=== PATIENT | female | born 1995 | race African-American/Black ===

== ENCOUNTER 2018-02-08 13:17 | Emergency (ER) | payer OTHER ==
[2018-02-08 13:26] VITALS: BP 119/76; PULSE 79; TEMP 99.5; BMI 20.7
--- NOTE | 2018-02-08 14:21 | PDOC ---
History of Present Illness - General Chief Complaint: Sore Throat Stated Complaint: SORE THROAT Time Seen by Provider: 02/08/18 14:15 - History of Present Illness Initial Comments: 02/08/18 14:19 22-year-old female without comorbidities presents for evaluation of sore throat 2 days without associated symptoms Past History - Past Medical History Allergies/Adverse Reactions: Allergies Allergy/AdvReac Type Severity Reaction Status Date / Time No Known Allergies Allergy Verified 12/16/15 16:06 Home Medications: Ambulatory Orders NK [No Known Home Medication] 02/08/18 Asthma: Yes COPD: No - Immunization History Immunization Up to Date: Yes - Suicide/Smoking/Psychosocial Hx Smoking Status: No Smoking History: Never smoked Have you smoked in the past 12 months: No Number of Cigarettes Smoked Daily: 0 Hx Alcohol Use: No Drug/Substance Use Hx: No Substance Use Type: None Review of Systems - Review of Systems HEENTM: Yes: Throat Pain *Physical Exam - Vital Signs Last Vital Signs Temp Pulse Resp BP Pulse Ox 99.5 F 79 16 119/76 100 02/08/18 13:24 02/08/18 13:24 02/08/18 13:24 02/08/18 13:24 02/08/18 13:24 - Physical Exam Comments: HEAD: NC/AT EYES: Conjuntiva clear Ears: Canals and TM's normal NOSE: No d/c THROAT: Moist mucous membrances, oral pharanx clear, uvula midline NECK: Supple without adenopathy CARDIAC: S1 S2 LUNGS: CTA Full and Equal breath sounds ABDOMEN: Soft NT ND MS: Full ROM in all joints without edema NEUROLOGIC: No gross sensory or motor deficits, NVID SKIN: Normal color and temperature no lesions or rashes 02/08/18 14:20 Medical Decision Making - Medical Decision Making Rapid strep pending 02/08/18 14:20 *DC/Admit/Observation/Transfer Diagnosis at time of Disposition: URI (upper respiratory infection) - Discharge Dispostion Disposition: HOME Condition at time of disposition: Stable Decision to Admit order: No - Referrals Referrals: Gianni Langston MD [Primary Care Provider] - - Patient Instructions Printed Discharge Instructions: DI for Viral Upper Respiratory Infection -- Adult Additional Instructions: Return to the emergency room should symptoms worsen or go unresolved. Please follow-up with the primary care physician one to 2 days for further evaluation and treatment options. Warm salt water gargles 5-6 times they will help your sore throat. May take Tylenol and Motrin for pain any pain or discomfort he may have. - Post Discharge Activity Forms/Work/School Notes: Back to School
== END 2018-02-08 15:24 | disposition home or self-care (01) ==
LOC: JERFT 13:17 → JER 13:17 → JERFT 15:24
DX: J06.9 Acute upper respiratory infection, unspecified (principal); B97.89 Other viral agents as the cause of diseases classified elsewhere; J45.909 Unspecified asthma, uncomplicated
CPT/HCPCS: 87070; 87430; 99281-25

== ENCOUNTER 2018-09-20 09:52 | Emergency (ER) | payer OTHER ==
[2018-09-20 10:02] VITALS: BP 133/87; PULSE 86; TEMP 98.4; BMI 23.2
--- NOTE | 2018-09-20 10:23 | PDOC ---
History of Present Illness - General Chief Complaint: Back Pain Stated Complaint: PAIN Time Seen by Provider: 09/20/18 10:17 History Source: Patient Exam Limitations: No Limitations (R flank pain X 4 days, denies trauma, hematuria or pelvic pain) - History of Present Illness Pain Location: reports: none Past History - Travel Traveled outside of the country in the last 30 days: No Close contact w/someone who was outside of country & ill: No - Past Medical History Allergies/Adverse Reactions: Allergies Allergy/AdvReac Type Severity Reaction Status Date / Time No Known Allergies Allergy Verified 09/20/18 10:02 Home Medications: Ambulatory Orders Ciprofloxacin HCl [Cipro] 500 mg PO BID 7 Days #14 tablet 09/20/18 Asthma: Yes COPD: No - Immunization History Immunization Up to Date: Yes - Suicide/Smoking/Psychosocial Hx Smoking Status: No Smoking History: Never smoked Have you smoked in the past 12 months: No Number of Cigarettes Smoked Daily: 0 Hx Alcohol Use: No Drug/Substance Use Hx: No Substance Use Type: None Review of Systems - Review of Systems Is the patient limited Icelandic proficient: No Constitutional: No: Chills, Fever ABD/GI: No: Abdominal Distended, Abd. Pain w/ defecation, Blood Streaked Bowels , Difficulty Swallowing, Nausea, Rectal Bleeding, Vomiting, Abdominal cramping : Yes: Flank Pain. No: Burning, Dysuria, Discharge, Frequency, Hematuria, Incontinence *Physical Exam - Vital Signs Last Vital Signs Temp Pulse Resp BP Pulse Ox 98.4 F 86 16 133/87 100 09/20/18 09:59 09/20/18 09:59 09/20/18 09:59 09/20/18 09:59 09/20/18 09:59 - Physical Exam General Appearance: Yes: Nourished Respiratory/Chest: positive: Lungs Clear, Normal Breath Sounds Cardiovascular: positive: Regular Rhythm, Regular Rate, S1, S2 Gastrointestinal/Abdominal: positive: Normal Bowel Sounds, Soft Musculoskeletal: positive: CVA Tenderness (R) Extremity: positive: Normal Capillary Refill, Normal Inspection Integumentary: positive: Normal Color Neurologic: positive: immunologist II-XII NML intact, Fully Oriented, Alert, Normal Response Medical Decision Making - Medical Decision Making 09/20/18 10:22 R flank pain X 4 days, admitted to urinary frequency a week ago. She denies f/c , trauma, weakness, radiation, heavy lifting and dysuria, pt took motrin 4hrs [employer] exam with R CVA tenderness UA ordered 09/20/18 10:23 + UA, UCX sent given + UA and R flank pain, suspect uncomplicated pyelonephritis vss strict return instructions given 09/20/18 13:38 *DC/Admit/Observation/Transfer Diagnosis at time of Disposition: Pyelonephritis - Discharge Dispostion Disposition: HOME Condition at time of disposition: Stable Decision to Admit order: No - Prescriptions Prescriptions: Ciprofloxacin HCl [Cipro] 500 mg PO BID 7 Days #14 tablet - Referrals Referrals: Charisse Leigh MD [Primary Care Provider] - - Patient Instructions Printed Discharge Instructions: DI for Kidney Infection Additional Instructions: increased fluid intake please take antibiotics as prescribed followup with your primary care doctor return to the ER if worsening symptoms occurs - Post Discharge Activity Forms/Work/School Notes: Back to School
[2018-09-20 11:02] LABS: EPI CELLS >36 /HPF (0-5/HPF); URINE APPEARANCE CLOUDY; URINE BILIRUBIN NEGATIVE (NEGATIVE); URINE CASTS 29 /lpf (0-8); URINE COLOR YELLOW; URINE GLUCOSE (UA) NEGATIVE (NEGATIVE); URINE KETONE TRACE (NEGATIVE); URINE LEUK ESTERASE TRACE (NEGATIVE); URINE NITRITE NEGATIVE (NEGATIVE); URINE PROTEIN 1+ (NEGATIVE); URINE RBC 1 /hpf (0-4); URINE UROBILINOGEN 0.2 mg/dL (0.2-1.0); URINE WBC 5 /hpf (0-5)
== END 2018-09-20 11:27 | disposition home or self-care (01) ==
LOC: JERFT 09:52
DX: N12 Tubulo-interstitial nephritis, not specified as acute or chronic (principal)
CPT/HCPCS: 81003; 84703; 87086; 99281-25

== ENCOUNTER 2019-01-12 20:14 | Emergency (ER) | payer OTHER ==
[2019-01-12 20:37] VITALS: BP 132/85; PULSE 95; TEMP 98.7; BMI 25.2
--- NOTE | 2019-01-12 20:37 | PDOC ---
Rapid Medical Evaluation Chief Complaint: Pain Time Seen by Provider: 01/12/19 20:34 Medical Evaluation: Allergies Allergy/AdvReac Type Severity Reaction Status Date / Time No Known Allergies Allergy Verified 09/20/18 10:02 01/12/19 20:36 Pt c/o: rt suprapubic pain x 4-5 days, beta hcg 791, nothing detected on u/s today w/ wine fermenter, sent here to r/o ectopic Pt on brief exam: vss pt ordered for:labs, urine, u/s, type and screen Pt to proceed to the ED Discharge Disposition - Diagnosis Abdominal pain during - Referrals - Patient Instructions - Post Discharge Activity
[2019-01-12 21:38] LABS: URINE APPEARANCE CLEAR; URINE BILIRUBIN NEGATIVE (NEGATIVE); URINE COLOR YELLOW; URINE GLUCOSE (UA) NEGATIVE (NEGATIVE); URINE KETONE TRACE (NEGATIVE); URINE LEUK ESTERASE NEGATIVE (NEGATIVE); URINE NITRITE NEGATIVE (NEGATIVE); URINE PROTEIN NEGATIVE (NEGATIVE); URINE UROBILINOGEN 0.2 mg/dL (0.2-1.0)
[2019-01-12 21:49] LABS: INR 0.93 (0.83-1.09)
[2019-01-12 22:42] LABS: ALBUMIN 3.6 g/dl (3.4-5.0); BILIRUBIN,TOTAL 0.3 mg/dL (0.2-1); BLOOD UREA NITROGEN 10.4 mg/dL (7-18); CALCIUM 8.9 mg/dL (8.5-10.1); CREATININE 0.9 mg/dL (0.55-1.3); POTASSIUM 4.1 mmol/L (3.5-5.1); TOT PROT 6.9 g/dl (6.4-8.2)
[2019-01-12] MEDS ORDERED: ACETAMINOPHEN 325 MG TABLET (FP) PO ONE (22:43)
--- NOTE | 2019-01-12 22:43 | PDOC ---
History of Present Illness - General Chief Complaint: Pain Stated Complaint: ABD/BACK PAIN Time Seen by Provider: 01/12/19 20:34 History Source: Patient Exam Limitations: Clinical Condition - History of Present Illness Initial Comments: 01/12/19 22:39 Patient with no significant past medical history and all show last menstrual period sent in by her [facility] to rule out ectopic due to low trending up beta hCG. Patient reported having right lower pelvic pain which has been intermittent cramping in nature for a week now. Patient had multiple visits to the [facility] was been doing serial beta hCG which has been going up with inappropriate rise. Patient reported that hCG done 2 days ago was 650 and 500 prior to that in 48 hours. Denies vaginal bleeding, urinary frequency, dysuria or burning with urination. Denies nausea or vomiting. Patient has never been before Timing/Duration: 1 week Past History - Past Medical History Allergies/Adverse Reactions: Allergies Allergy/AdvReac Type Severity Reaction Status Date / Time No Known Allergies Allergy Verified 01/12/19 21:34 Home Medications: Ambulatory Orders NK [No Known Home Medication] 01/12/19 Asthma: Yes COPD: No - Immunization History Immunization Up to Date: Yes - Suicide/Smoking/Psychosocial Hx Smoking Status: No Smoking History: Never smoked Have you smoked in the past 12 months: No Number of Cigarettes Smoked Daily: 0 Information on smoking cessation initiated: No Hx Alcohol Use: No Drug/Substance Use Hx: No Substance Use Type: None Review of Systems - Review of Systems Able to Perform ROS?: Yes Is the patient limited Romanian proficient: No Constitutional: No: Symptoms Reported HEENTM: No: Symptoms Reported Respiratory: No: Symptoms reported Cardiac (ROS): No: Symptoms Reported ABD/GI: No: Symptoms Reported, Nausea, Vomiting : Yes: Symptoms Reported, See HPI, Pain (right pelvic). No: Burning, Dysuria , Discharge, Frequency, Flank Pain, Hematuria, Incontinence, Urgency, Other ( vaginal bleeding) Musculoskeletal: Yes: Symptoms Reported, See HPI. No: Back Pain (intermittent lower back pain) Integumentary: No: Symptoms Reported Neurological: No: Symptoms reported, Headache, Weakness, Dizziness All Other Systems: Reviewed and Negative *Physical Exam - Vital Signs Last Vital Signs Temp Pulse Resp BP Pulse Ox 98.7 F 95 H 18 132/85 100 01/12/19 20:34 01/12/19 20:34 01/12/19 20:34 01/12/19 20:34 01/12/19 20:34 - Physical Exam General Appearance: Yes: Nourished, Appropriately Dressed. No: Apparent Distress HEENT: positive: Normal ENT Inspection Neck: positive: Supple Respiratory/Chest: positive: Lungs Clear, Normal Breath Sounds. negative: Respiratory Distress, Accessory Muscle Use Cardiovascular: positive: Regular Rhythm, Regular Rate Female Pelvic Exam: positive: normal external exam. negative: vaginal bleeding Gastrointestinal/Abdominal: positive: Normal Bowel Sounds, Tender (mild TTP to right pelvic region). negative: Rebound, Tenderness, Hernia Musculoskeletal: positive: Normal Inspection. negative: CVA Tenderness Extremity: positive: Normal Inspection Integumentary: positive: Normal Color Neurologic: positive: Fully Oriented, Alert, Normal Mood/Affect, Normal Response ED Treatment Course - LABORATORY CBC & Chemistry Diagram: 01/12/19 21:07 - ADDITIONAL ORDERS Additional order review: Laboratory Results 01/12/19 01/12/19 21:07 21:07 PT with INR 11.00 INR 0.93 Urine Color Yellow Urine Appearance Clear Urine pH 6.0 Ur Specific [place] 1.026 Urine Protein Negative Urine Glucose (UA) Negative Urine Ketones Trace H Urine Blood Negative Urine Nitrite Negative Urine Bilirubin Negative Urine Urobilinogen 0.2 Ur Leukocyte Esterase Negative Medical Decision Making - Medical Decision Making 01/12/19 22:41 Patient with no significant past medical history and all show last menstrual period sent in by her [facility] to rule out ectopic due to low trending up beta hCG. Patient reported having right lower pelvic pain which has been intermittent cramping in nature for a week now. Patient had multiple visits to the [facility] was been doing serial beta hCG which has been going up with inappropriate rise. Patient reported that hCG done yesterday in [facility] office was 750 and 500 prior to that in 48 hours. Denies vaginal bleeding, urinary frequency, dysuria or burning with urination. Denies nausea or vomiting. Patient has never been before Exam significant for mild tenderness over right pelvic region without guarding or rebound. No vaginal bleeding no CMT. Pelvic ultrasound read by radiology shows no IUP or ectopic. Beta hCG level still pending. CBC labs are unremarkable. Treat based on beta hCG level 01/12/19 23:09 bet hcg is 702 which a downs trend of 750 yesterday. Patient stable for discharge for repeat beta in 48hrs with strict follow-up instructions *DC/Admit/Observation/Transfer Diagnosis at time of Disposition: Abdominal pain during Qualifiers: Trimester: first trimester Qualified Code(s): O26.891 - Other specified related conditions, first trimester - Discharge Dispostion Disposition: HOME Condition at time of disposition: Stable Decision to Admit order: No - Referrals Referrals: Charisse Leigh MD [Primary Care Provider] - - Patient Instructions Printed Discharge Instructions: Managing Symptoms of Additional Instructions: Come back to ED in 48hrs for repeat blood hormones level and ultrasound. Come back earlier if vaginal bleeding . worsening abdominal pains with vomiting. Take tylenol as needed for pain. Apply heat to lower abdomen as needed for pain - Post Discharge Activity
[2019-01-12] MEDS ORDERED: ACETAMINOPHEN 325 MG TABLET (FP) ONE (22:50)
--- NOTE | 2019-01-13 00:52 | PDOC ---
*Physical Exam - Vital Signs Last Vital Signs Temp Pulse Resp BP Pulse Ox 98.7 F 95 H 18 132/85 100 01/12/19 20:34 01/12/19 20:34 01/12/19 20:34 01/12/19 20:34 01/12/19 20:34 ED Treatment Course - LABORATORY CBC & Chemistry Diagram: 01/12/19 21:07 - ADDITIONAL ORDERS Additional order review: Laboratory Results 01/12/19 01/12/19 01/12/19 21:07 21:07 21:07 PT with INR 11.00 INR 0.93 Sodium 138 Potassium 4.1 Chloride 105 Carbon Dioxide 28 Anion Gap 6 L BUN 10.4 Creatinine 0.9 Est GFR (CKD-EPI)AfAm 104.45 Est GFR (CKD-EPI)NonAf 90.12 Random Glucose 82 Calcium 8.9 Total Bilirubin 0.3 AST 20 ALT 14 Alkaline Phosphatase 60 Total Protein 6.9 Albumin 3.6 Beta HCG, Quant 702.2 Urine Color Yellow Urine Appearance Clear Urine pH 6.0 Ur Specific [place] 1.026 Urine Protein Negative Urine Glucose (UA) Negative Urine Ketones Trace H Urine Blood Negative Urine Nitrite Negative Urine Bilirubin Negative Urine Urobilinogen 0.2 Ur Leukocyte Esterase Negative - Medications Given in the ED: ED Medications Discontinued Medications Generic Name Dose Route Start Last Admin Trade Name Mason PRN Reason Stop Dose Admin Acetaminophen 975 mg 01/12/19 22:43 01/12/19 22:50 Tylenol - PO 01/12/19 22:44 975 mg ONCE ONE Administration Medical Decision Making - Medical Decision Making 01/13/19 00:51 Case reviewed, agree with assessment and plan *DC/Admit/Observation/Transfer Diagnosis at time of Disposition: Abdominal pain during Qualifiers: Trimester: first trimester Qualified Code(s): O26.891 - Other specified related conditions, first trimester - Discharge Dispostion Disposition: HOME Condition at time of disposition: Stable - Referrals Referrals: Charisse Leigh MD [Primary Care Provider] - - Patient Instructions Printed Discharge Instructions: Managing Symptoms of Additional Instructions: Come back to ED in 48hrs for repeat blood hormones level and ultrasound. Come back earlier if vaginal bleeding . worsening abdominal pains with vomiting. Take tylenol as needed for pain. Apply heat to lower abdomen as needed for pain - Post Discharge Activity
== END 2019-01-12 23:18 | disposition home or self-care (01) ==
LOC: JER 20:14
DX: O26.891 Other specified pregnancy related conditions, first trimester (principal); Z3A.00 Weeks of gestation of pregnancy not specified
CPT/HCPCS: 36415; 76817-TC; 80053; 81003; 84702; 85610; 86850; 86900; 86901; 87086; 99282-25

== ENCOUNTER 2019-01-14 13:53 | Emergency (ER) | payer OTHER ==
[2019-01-14 13:56] VITALS: BP 142/91; PULSE 88; TEMP 99.6; BMI 25.2
--- NOTE | 2019-01-14 14:25 | PDOC ---
History of Present Illness - General Chief Complaint: Revisit, Lab Variance Stated Complaint: REVISIT Time Seen by Provider: 01/14/19 13:58 History Source: Patient Exam Limitations: No Limitations - History of Present Illness Initial Comments: 01/14/19 14:15 HISTORY OF PRESENT ILLNESS: 23-year-old prima with last menstrual period in October of this year who presents for reevaluation of beta hCG testing. Patient was seen in [facility] and told she had a low trending beta- HCG. Patient is being followed at [facility] and is time is not sure if she wants to continue with the going forward. Patient was seen in this ER 2 days ago and was noted to have a beta hCG of 700 to which is a decreased from 750 the day before. Presently the patient denies any abdominal pain or vaginal bleeding. No recent travel or sick contacts. PAST MEDICAL HISTORY: Denies past medical history SURGICAL HISTORY: Denies ALLERGIES: No known drug allergies REVIEW OF SYSTEMS General/Constitutional: Denies fever or chills. Denies weakness, weight change. HEENT: Denies change in vision. Denies ear pain or discharge. Denies sore throat. Cardiovascular: Denies chest pain or shortness of breath. Respiratory: Denies cough, wheezing, or hemoptysis. Gastrointestinal: Denies nausea, vomiting, diarrhea or constipation. Denies rectal bleeding. Genitourinary: see HPI Musculoskeletal: Denies joint or muscle swelling or pain. Denies neck or back pain. Skin and breasts: Denies rash or easy bruising. Neurologic: Denies headache, vertigo, loss of consciousness, or loss of sensation. Psychiatric: Denies depression or anxiety. Endocrine: Denies increased thirst. Denies abnormal weight change. Hematologic/Lymphatic: Denies anemia, easy bleeding, or history of blood clots. Allergic/Immunologic: Denies hives or skin allergy. Denies latex allergy. PHYSICAL EXAM General Appearance: Well-appearing, appropriately dressed. No apparent distress , no intoxication. HEENT: EOMI, PERRLA, normal ENT inspection, normal voice, TMs normal, pharynx normal. No conjunctival pallor. No photophobia, scleral icterus. Neck: Supple. Trachea midline. No tenderness, rigidity, carotid bruit, stridor , lymphadenopathy, or thyromegaly. Respiratory/Chest: Lungs CTAB. No shortness of breath, chest tenderness, respiratory distress, accessory muscle use. No crackles, rales, rhonchi, stridor , wheezing, dullness Cardiovascular: RRR. S1, S2. No JVD, murmur, bradycardia, tachycardia. Vascular Pulses: Dorsalis-Pedis (R): 2+, Dorsalis-Pedis (L): 2+ Gastrointestinal/Abdominal: Normal bowel sounds. Abdomen soft, non-distended. No tenderness or rebound tenderness. No organomegaly, pulsatile mass, guarding, hernia, hepatomegaly, splenomegaly. Lymphatic: No adenopathy, tenderness. Musculoskeletal/Extremities: Normal inspection. FROM of all extremities, normal capillary refill. Pelvis Stable. No CVA tenderness. No tenderness to extremities, pedal edema, swelling, erythema or deformity. Integumentary: Appropriate color, dry, warm. No cyanosis, erythema, jaundice or rash Neurologic: metal expediter II-XII intact. Fully oriented, alert. Appropriate mood/affect. Motor strength 5/5. No appreciable EOM palsy, facial droop or sensory deficit. Past History - Past Medical History Allergies/Adverse Reactions: Allergies Allergy/AdvReac Type Severity Reaction Status Date / Time No Known Allergies Allergy Verified 01/14/19 13:56 Home Medications: Ambulatory Orders NK [No Known Home Medication] 01/12/19 Asthma: Yes COPD: No - Immunization History Immunization Up to Date: Yes - Suicide/Smoking/Psychosocial Hx Smoking Status: No Smoking History: Never smoked Have you smoked in the past 12 months: No Number of Cigarettes Smoked Daily: 0 Hx Alcohol Use: No Drug/Substance Use Hx: No Substance Use Type: None *Physical Exam - Vital Signs Last Vital Signs Temp Pulse Resp BP Pulse Ox 99.6 F 88 18 142/91 99 01/14/19 13:54 01/14/19 13:54 01/14/19 13:54 01/14/19 13:54 01/14/19 13:54 Medical Decision Making - Medical Decision Making 01/14/19 14:16 A/P: 23-year-old woman here for repeat beta testing Asymptomatic at this time Beta hCG We'll defer imaging until beta hCG has resulted 01/14/19 16:35 beta hCG-[address] as read by Dr. Singh: No intrauterine is identified. Etiology could include very early , ectopic or recent miscarriage. [facility] has been paged at [id number]. 01/14/19 17:09 Case been discussed with Dr. Champion of OB who recommends weekly serial trending of beta at their office. I'll give the patient strict return precautions and instruct the patient to follow-up at [facility] next week for reevaluation with beta hCG testing. 01/15/19 11:30 *DC/Admit/Observation/Transfer Diagnosis at time of Disposition: Threatened - Discharge Dispostion Disposition: HOME Condition at time of disposition: Stable - Referrals Referrals: Charisse Leigh MD [Primary Care Provider] - Bryn Champion MD [Staff Physician] - - Patient Instructions Additional Instructions: Keep well-hydrated. Avoid tobacco and alcohol as well as illegal drugs. Make an appointment with your [facility] for reevaluation. Return to the emergency department immediately for severe pain, vaginal bleeding that requires more than 2 pads per hour or for any other symptoms. Thank you very much for choosing us to provide your emergent health care needs. - Post Discharge Activity
[2019-01-14] MEDS ORDERED: ACETAMINOPHEN 325 MG TABLET (FP) ONE (16:45)
[2019-01-14] MEDS ORDERED: ACETAMINOPHEN 500 MG TABLET (FP) PO ONE (16:45)
== END 2019-01-14 17:22 | disposition home or self-care (01) ==
LOC: JERFT 13:53
DX: O26.891 Other specified pregnancy related conditions, first trimester (principal); O20.0 Threatened abortion; Z3A.01 Less than 8 weeks gestation of pregnancy
CPT/HCPCS: 36415; 76817-TC; 84702; 99281-25

== ENCOUNTER 2020-04-23 06:06 | Day surgery (SDC) | payer OTHER ==
[2020-04-22 15:33] VITALS: BMI 25.2
[2020-04-23] MEDS ORDERED: MIDAZOLAM HCL 2 MG/2 ML SINGLE DOSE VIAL ONE (14:56)
[2020-04-23] MEDS ORDERED: PROPOFOL 20 ML ONE ×3 (14:58→15:24)
[2020-04-23] MEDS ORDERED: ceFAZolin SODIUM 1 GM VIAL IVPB ONE (15:15)
[2020-04-23] MEDS ORDERED: SEVOFLURANE 250 ML BTL ONE (15:22)
[2020-04-23] MEDS ORDERED: ceFAZolin SODIUM 1 GM VIAL ONE (15:29)
[2020-04-23] MEDS ORDERED: LIDOCAINE HCL/PF 2% SDV 5ML VIAL ONE (15:29)
[2020-04-23] MEDS ORDERED: KETOROLAC TROMETHAMINE 30 MG/1 ML VIAL ONE (15:29)
[2020-04-23] MEDS ORDERED: DEXAMETHASONE SOD PHOSPHATE 4 MG/1 ML VIAL ONE (15:29)
[2020-04-23] MEDS ORDERED: LIDOCAINE HCL 1%, 10 MG/ML (20ML VIAL) ID ONE ×2 (15:36)
[2020-04-23] MEDS ORDERED: ONDANSETRON 4 MG/2 ML VIAL IVPUSH PRN (16:13)
[2020-04-23] MEDS ORDERED: ACETAMINOPHEN 1000 MG/100 ML VIAL (NON FORMULARY) IVPB PRN (16:14)
[2020-04-23] MEDS ORDERED: ACETAMINOPHEN 1000 MG/100 ML VIAL (NON FORMULARY) IVPB ONE (16:15)
[2020-04-23] MEDS ORDERED: LACTATED RINGERS SOLUTION 1,000 ML IV SCH (16:15)
[2020-04-23 18:28] VITALS: BP 139/87; PULSE 74; TEMP 98.8
== END 2020-04-23 19:20 | disposition home or self-care (01) ==
LOC: JASU-SURG 06:06
PROVIDERS: ATTEND Surgery
PROC: 0HBU0ZX Excision of Left Breast, Open Approach, Diagnostic (ICD-10-PCS; principal; 2020-04-23 13:30)
DX: D24.2 Benign neoplasm of left breast (principal)
CPT/HCPCS: 19281; 76098-TC-FY; 81025; 88307-TC; 94760; J0131

== ENCOUNTER → 2020-07-03 | Day surgery (SDC) | payer OTHER | END | disposition home or self-care (01) | LOC: FMAMMOTONE 11:00 | PROVIDERS: ATTEND Surgery | PROC: 0H9U3ZX Drainage of Left Breast, Percutaneous Approach, Diagnostic (ICD-10-PCS; principal; 2020-07-03) | DX: D24.2 Benign neoplasm of left breast (principal) | CPT/HCPCS: 19081; 76098-TC-FY; 87899; A4648 ==

== ENCOUNTER 2023-09-06 12:10 | Emergency (ER) | payer OTHER ==
[2023-09-06 12:20] VITALS: BP 134/93; PULSE 87; RESP 18; TEMP 98; BMI 21.9
[2023-09-06] MEDS ORDERED: KETOROLAC TROMETHAMINE 30 MG/1 ML VIAL ONE (13:26)
[2023-09-06] MEDS ORDERED: ACETAMINOPHEN 500 MG TABLET (FP) ONE (13:26)
[2023-09-06] MEDS: ACETAMINOPHEN 500 MG TABLET (FP) PO ONE (13:35)
[2023-09-06] MEDS: KETOROLAC TROMETHAMINE 30 MG/1 ML VIAL IM ONE (13:35)
== END 2023-09-06 14:11 | disposition home or self-care (01) ==
LOC: JERFT 12:10
PROC: 2W3FX1Z Immobilization of Left Hand using Splint (ICD-10-PCS; principal; 2023-09-06)
PROC: 2W3FX1Z Immobilization of Left Hand using Splint (ICD-10-PCS; 2023-09-06)
DX: S52.202A Unspecified fracture of shaft of left ulna, initial encounter for closed fracture (principal); V43.52XA Car driver injured in collision with other type car in traffic accident, initial encounter
CPT/HCPCS: 73070-TC-LT-FY; 73090-TC-LT-FY; 99284-25